=== PATIENT | male | born 1970 | race Caucasian/White ===

== ENCOUNTER 2024-02-10 15:18 | Emergency (ER) | payer BC ==
[2024-02-10 15:41] VITALS: TEMP 98.2
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
[2024-02-10] MEDS ORDERED: TORAdol 30 mg Injection ONE ×2 (16:08→16:16)
[2024-02-10] MEDS ORDERED: CLEOCIN 150 MG CAPSULE ONE ×2 (16:09→16:16)
[2024-02-10] MEDS: TORAdol 30 mg Injection IM ONE (16:14)
[2024-02-10] MEDS: CLEOCIN 150 MG CAPSULE PO ONE (16:15)
[2024-02-10 16:26] VITALS: BP 146/84
[2024-02-10] MEDS ORDERED: NORCO 10-325 MG ONE (16:31)
[2024-02-10] MEDS: NORCO 10-325 MG PO STA (16:33)
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
[2024-02-10 17:14] VITALS: PULSE 70; RESP 18; O2SAT 98
[2024-02-10] MEDS: NORCO 5/325 MG PO ONE (18:55)
[2024-02-10] MEDS ORDERED: NORCO 5/325 MG ONE (18:55)
== END 2024-02-10 17:15 | disposition home or self-care (01) ==
LOC: ED 15:18
DX: S62.660B Nondisplaced fracture of distal phalanx of right index finger, initial encounter for open fracture (principal); S61.202A Unspecified open wound of right middle finger without damage to nail, initial encounter; S61.204A Unspecified open wound of right ring finger without damage to nail, initial encounter; W32.0XXA Accidental handgun discharge, initial encounter; I10 Essential (primary) hypertension; Z79.891 Long term (current) use of opiate analgesic; Z79.899 Other long term (current) drug therapy
CPT/HCPCS: 73130; 96372; 99285; J1885; A9270-GY